=== PATIENT | male | born 1990 | race Two or more races ===

== ENCOUNTER 2018-10-29 10:47 | Emergency (ER) | payer SELFPAY ==
[~2018-10-29] VITALS: Ht 167.6 cm; Wt 83.0 kg
[2018-10-29 12:39] VITALS: BP 140/90
== END 2018-10-29 12:53 | disposition home or self-care (01) ==
LOC: ER 10:47
DX: R51 Headache (principal); Z88.6 Allergy status to analgesic agent; V43.52XA Car driver injured in collision with other type car in traffic accident, initial encounter; Y93.89 Activity, other specified; Y99.8 Other external cause status; Y92.410 Unspecified street and highway as the place of occurrence of the external cause
CPT/HCPCS: 70450